=== PATIENT | female | born 1965 | race Caucasian/White ===

== ENCOUNTER 2025-07-13 14:10 | Emergency (ER) | payer OTHER, SELFPAY ==
[2025-07-13] VITALS (16 sets, daily range): BP systolic 122–153; BP diastolic 59–79; PULSE 61–73; RESP 16–24; TEMP 36.6; O2SAT 95–100; BMI 26.6
--- NOTE | 2025-07-13 14:25 | EKG_ITS ---
[place] [id number] [place] [id number] Test Date: 2025-07-13 Pat Name: Sierra Gann Department: [facility] Room: Gender: Female [employer]ash[employer] Designer: NASIR : 1965 Requested By: Order Number: [id number] Reading MD: Arturo Bergman MD Measurements Intervals [place] Rate: 55 P: 40 FL: 138 QRS: 48 QRSD: 94 T: 13 QT: 462 QTc: 441 Interpretive Statements Sinus bradycardia with sinus arrhythmia Electronically Signed On 07-14-2025 8:03:33 PDT by Arturo Bergman MD
--- NOTE | 2025-07-13 14:54 | ED.NEUROSD ---
HPI - Neuro Symptoms/Deficit <Haseeb Ruffin MD - Last Filed: 07/14/25 08:55> General Chief Complaint: Neuro Symptoms/Deficit Stated Complaint: needs MRI, Memory loss this morning Time Seen by Provider: 07/13/25 14:31 Source: patient Mode of arrival: Ambulatory History of Present Illness HPI Narrative: Patient here with . Complains 1 hour of amnesia. Patient was with a friend this morning and they had gone in the [place] exercise. She states and did a fast exam that was negative. Patient was confused about 2 of her dogs and 2 of her friend's dogs that were with them and she did not recognize the dogs. She did not realize where she was or what she was doing. In addition. She does not even remember this confusion or the statements. She does recall towards the end of that 1 hour episode her friend calling another friend [place] advice[place] blood patient denies any history of complex migraine headaches or seizures. Patient does not feel like she was hypoglycemic. There was no known chest pain palpitations diaphoresis. No fall or injury. On Anticoagulants: No Related Data Allergies Allergy/AdvReac Type Severity Reaction Status Date / Time Penicillins Allergy Severe Swelling Verified 07/13/25 14:29 of Lip/Tongue/Throat Review of Systems <Haseeb Ruffin MD - Last Filed: 07/14/25 08:55> Review of Systems Narrative: GENERAL: Negative chills, fatigue, malaise, fever, sweats. HEENT: Negative sinus pain, ear pain, sore throat RESPIRATORY: Negative dyspnea, cough CARDIOVASCULAR: Negative chest pain, palpitations GASTROINTESTINAL: Negative vomiting, nausea, abdominal pain : Negative dysuria, frequency, hematuria MUSCULOSKELETAL: Negative muscle or bony pain SKIN: Negative rash, skin lesions NEUROLOGIC: Negative weakness, numbness, positive amnesia ROS Unobtainable: All systems reviewed & are unremarkable except as noted in HPI and below Hematologic/Lymphatic On Anticoagulants: No Patient History <Haseeb Ruffin MD - Last Filed: 07/14/25 08:55> Social History Smoking Status: Never smoker Smoking Status: Never smoker Exam <Haseeb Ruffin MD - Last Filed: 07/14/25 08:55> Narrative Exam Narrative: GENERAL: in no distress, not toxic not dyspneic HEAD: Normocephalic. EYES: Pupils equal round ENT: Mucous membranes moist. NECK: Trachea midline. CARDIOVASCULAR: Regular rate and rhythm RESPIRATORY: Clear to auscultation. Breath sounds equal bilaterally. No wheezes, rales, or rhonchi. GASTROINTESTINAL: Abdomen soft, non-tender EXTREMITIES: No gross deformities. BACK: No flank tenderness. NEURO: AOx4. Clear speech. No facial droop light touch intact bilateral face hands and legs. 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 Steady bilateral leg LEs without drift. Fast exam is negative SKIN: Warm and dry PSYCH: Not anxious, is cooperative Initial Vital Signs Initial Vital Signs: Vital Signs Pulse Rate 73 07/13/25 14:19 Pulse Oximetry 98 07/13/25 14:19 <Danyelle Camacho DO - Last Filed: 07/14/25 00:33> Initial Vital Signs Initial Vital Signs: Vital Signs Pulse Rate 73 07/13/25 14:19 Pulse Oximetry 98 07/13/25 14:19 Scores <Haseeb Ruffin MD - Last Filed: 07/14/25 08:55> NIH Stroke Scale Level of Conciousness: Alert, keenly responsive Ask month/age: Answers both questions correctly. Open/close eyes, close hand: Performs both tasks correctly Best gaze horizontal: Normal Visual hull: No visual loss Facial palsy: Normal symetrical movement Left arm drift: No drift for full 10 sec Right arm drift: No drift for full 10 sec Left leg drift: No drift for full 5 sec Right leg drift: No drift for full 5 sec Limb ataxia: Absent Sensory on face/arms/legs: Normal, no sensory loss Best language: No aphasia, normal Dysarthria: Normal Extinction or inattention: No abnormality Total NIH Stroke scale score: 0 <Danyelle Camacho DO - Last Filed: 07/14/25 00:33> NIH Stroke Scale Total NIH Stroke scale score: 0 Course <Haseeb Ruffin MD - Last Filed: 07/14/25 08:55> Orders Ordered: Discontinued Medications Sodium Chloride (Normal Saline 0.9%) 500 mls @ 1,000 mls/hr IV BOLUS ONE Stop: 07/13/25 15:25 Last Infusion: 07/13/25 17:48 Dose: Infused Documented By: Admin: 07/13/25 15:30 Dose: 1,000 mls/hr Documented By: TEDDY Vital Signs Vital signs: Vital Signs - 8 hr 07/13/25 16:30 07/13/25 16:30 07/13/25 17:00 Pulse Rate 67 68 Respiratory Rate 24 19 Blood Pressure 125/74 Pulse Oximetry 97 97 Oxygen Delivery Method 07/13/25 17:01 07/13/25 17:01 07/13/25 17:31 Pulse Rate 69 67 Respiratory Rate 23 Blood Pressure 123/59 L Pulse Oximetry 97 100 Oxygen Delivery Method 07/13/25 19:25 07/13/25 19:26 07/13/25 19:26 Pulse Rate 70 63 Respiratory Rate Blood Pressure 136/65 Pulse Oximetry 96 95 Oxygen Delivery Method 07/13/25 19:28 Pulse Rate 62 Respiratory Rate 16 Blood Pressure 136/65 Pulse Oximetry 96 Oxygen Delivery Method Room Air <Danyelle Camacho DO - Last Filed: 07/14/25 00:33> Orders Ordered: Discontinued Medications Sodium Chloride (Normal Saline 0.9%) 500 mls @ 1,000 mls/hr IV BOLUS ONE Stop: 07/13/25 15:25 Last Infusion: 07/13/25 17:48 Dose: Infused Documented By: Admin: 07/13/25 15:30 Dose: 1,000 mls/hr Documented By: TEDDY Vital Signs Vital signs: Vital Signs - 8 hr 07/13/25 16:30 07/13/25 16:30 07/13/25 17:00 Pulse Rate 67 68 Respiratory Rate 24 19 Blood Pressure 125/74 Pulse Oximetry 97 97 Oxygen Delivery Method 07/13/25 17:01 07/13/25 17:01 07/13/25 17:31 Pulse Rate 69 67 Respiratory Rate 23 Blood Pressure 123/59 L Pulse Oximetry 97 100 Oxygen Delivery Method 07/13/25 19:25 07/13/25 19:26 07/13/25 19:26 Pulse Rate 70 63 Respiratory Rate Blood Pressure 136/65 Pulse Oximetry 96 95 Oxygen Delivery Method 07/13/25 19:28 Pulse Rate 62 Respiratory Rate 16 Blood Pressure 136/65 Pulse Oximetry 96 Oxygen Delivery Method Room Air MDM - Neuro Symptoms/Deficit <Haseeb Ruffin MD - Last Filed: 07/14/25 08:55> Lab Data 07/13/25 13:35 07/13/25 13:35 Labs: Lab Results 07/13/25 07/13/25 07/13/25 Range/Units 13:35 15:10 15:10 WBC 9.2 (4.5-11.0) X10^3/uL RBC 4.73 (4.0-5.2) X10^6/uL Hgb 14.7 (12.0-16.0) g/dL Hct 42.6 (36-46) % MCV 90.0 (80-100) fL MCH 31.0 (26-34) PG MCHC 34.5 (30-36) % RDW 12.3 (11.6-14.8) % Plt Count 215 (150-400) X10^3/uL Neut % (Auto) 70.2 (50-75) % Lymph % (Auto) 23.7 L (25-40) % [place] % (Auto) 5.3 (3-14) % Eos % (Auto) 0.4 L (2-4) % Baso % (Auto) 0.4 (0-2) % Neut # (Auto) 6400 (4097-9784) /uL Lymph # (Auto) 2200 (5371-8554) /uL [place] # (Auto) 500 (0-900) /uL Eos # (Auto) 0 (0-450) /uL Baso # (Auto) 0 (0-100) /uL Sodium 135 L (137-145) mmol/L Potassium 4.2 (3.4-5.1) mmol/L Chloride 103 (98-107) mmol/L Carbon Dioxide 23 (22-32) mmol/L BUN 15 (7-17) mg/dL Creatinine 0.76 (0.52-1.04) mg/dL Estimated GFR > 60 (>60) mL/min BUN/Creatinine Ratio 19.7 (6-22) Glucose 85 (70-99) mg/dL Calcium 9.5 (8.4-10.2) mg/dL Total Bilirubin 1.1 (0.2-1.3) mg/dL AST 43 H (14-36) IU/L ALT 26 (<35) IU/L Alkaline Phosphatase 53 (38-126) U/L Total Creatine Kinase 180 H (30-135) U/L Troponin I 0.016 (0.01-0.034) ng/mL Total Protein 7.9 (6.3-8.2) g/dL Albumin 4.8 (3.5-5.0) g/dL Globulin 3.1 (1.7-4.1) g/dL Albumin/Globulin Ratio 1.5 (1.0-2.8) Urine Color Yellow Urine Appearance Clear Urine pH 6.5 Normal (4.5-8.0) Ur Specific [place] <=1.005 (1.000-1.035) Urine Protein Negative (Negative) Urine Glucose (UA) Negative (Negative) g/dL Urine Ketones 1+ H (NEGATIVE) Urine Occult Blood Negative (Negative) Urine Nitrate Negative (Negative) Urine Bilirubin Negative (NEGATIVE) Urine Urobilinogen 0.2 (0.2) E.U./dL Ur Leukocyte Esterase Negative (NEGATIVE) Urine RBC None seen (0-5/HPF) Urine WBC None seen (0-5/HPF) Ur Squamous Epith Cells 0-1 /hpf (0-5/HPF) Urine Bacteria None seen (None) Vol Urine Centrifuged 10ml (spun) U Opiates 300ng/mL cut Negative (Negative) Ur Oxycodone Screen Negative (Negative) Urine Methadone Screen Negative (Negative) Ur Barbiturates Screen Negative (Negative) U Tricyclic Antidepress Negative (Negative) Ur Phencyclidine Scrn Negative (Negative) Ur Amphetamines Screen Negative (Negative) U Methamphetamines Scrn Negative (Negative) Ur MDMA Scrn (Ecstasy) Negative (Negative) U Benzodiazepines Scrn Negative (Negative) Urine Cocaine Screen Negative (Negative) U Marijuana (THC) Screen Negative (Negative) Urine Specific [place] Normal (Normal) Ethyl Alcohol < 10 (<10) mg/dL Ur Creatinine Normal (Normal) Imaging Data CT scan - head: Radiologist's Impression: [place] [address] CT Scan Report Signed Patient: Sierra Gann MR#: [id number] : 1965 Acct:[id number] Age/Sex: 60 / F Date of Service: 07/13/25 Loc: ED Accession Number: [id number] Procedure: CT head/brain wo con Ordering Provider: Haseeb Ruffin MD PROCEDURE: CT HEAD/BRAIN WO CON INDICATIONS: Altered mental status TECHNIQUE: Noncontrast 4.5 mm thick angled axial sections acquired from the foramen magnum to the vertex, with coronal and sagittal reformats. For radiation dose reduction, the following was used: automated exposure control, adjustment of mA and/or kV according to patient size. COMPARISON: None. FINDINGS: Image quality: Diagnostic. CSF spaces: Basal cisterns are patent. No extra-axial fluid collections. Ventricles are normal in size and shape. Brain: No midline shift. No intracranial mass effect or hemorrhage. [place]-white matter interface is normal. Skull and face: Calvarium and visualized facial bones are intact, without suspicious lesions. Sinuses: Visualized sinuses and mastoids are clear. IMPRESSION: No acute intracranial pathology. Dictated by: Joe Clark M.D. on 07/13/2025 at 14:23 Approved by: Joe Clark M.D. on 07/13/2025 at 14:24 CTA - brain/neck: Radiologist's Impression: [place] [address] CT Scan Report Signed Patient: Sierra Gann MR#: [id number] : 1965 Acct:[id number] Age/Sex: 60 / F Date of Service: 07/13/25 Loc: ED Accession Number: [id number] Procedure: CT angio head and neck Ordering Provider: Haseeb Ruffin MD PROCEDURE: CT ANGIO HEAD AND NECK INDICATIONS: Altered mental status TECHNIQUE: After the administration of intravenous contrast, 1 mm thick sections acquired from the aortic arch through the [place] of [place]. 3-dimensional hotoktk-budrfwuum-hzqpbtshrt (MIP) and/or volume rendering reformats were acquired of the central intracranial vasculature and neck separately. For radiation dose reduction, the following was used: automated exposure control, adjustment of mA and/or kV according to patient size. COMPARISON: [facility], CT, CT HEAD/BRAIN WO CON, 07/13/2025, 15:07. FINDINGS: Image quality: Limited by bolus timing, with venous contamination. Cerebral CT Angiogram: Internal carotid arteries: No acute findings. Intracranial ICA are patent with no significant stenosis. No occlusion. No aneurysm. Anterior cerebral arteries: Unremarkable. No significant stenosis. No occlusion. No aneurysm. Middle cerebral arteries: Unremarkable. No significant stenosis. No occlusion. No aneurysm. Posterior cerebral arteries: Unremarkable. No significant stenosis. No occlusion. No aneurysm. Basilar artery: Unremarkable. No significant stenosis. No occlusion. No aneurysm. Vertebral arteries: Unremarkable as visualized. Dural venous sinuses: Unremarkable given phase of enhancement. Other: Arterial phase appearance of the brain parenchyma is unremarkable. Neck CT Angiogram: Internal carotid arteries: Unremarkable. No significant stenosis. No dissection or occlusion. Common carotid arteries: Unremarkable. No significant stenosis. No dissection or occlusion. External carotid arteries: Unremarkable. No occlusion. Vertebral arteries: The origins of the vertebral arteries both appear widely patent. The more superior extracranial portions of both vertebral arteries also demonstrate normal courses and calibers. The left vertebral artery is dominant to the right. Aortic Arch and Mediastinum: Partially visualized aortic arch unremarkable without evidence of aneurysm. Origins of the great vessels unremarkable. Other: Arterial phase soft tissues of the neck and chest are unremarkable. Moderate cervical spine degenerative changes can be seen. Reversal of the normal cervical lordosis is seen, with the apex at the C4 level. There is minimal anterolisthesis seen at the C3-C4 level. IMPRESSION: No imaging explanation is found for this patient's presenting symptoms. No significant intracranial arterial abnormality is seen. No significant abnormality is seen within the arteries of the neck. No findings of dissection are seen. Additional findings: Moderate cervical spine degenerative change Any quantitative measurements of stenosis were performed using NASCET criteria. Dictated by: Joe Clark M.D. on 07/13/2025 at 14:28 Approved by: Joe Clark M.D. on 07/13/2025 at 14:30 [facility] Narrative Medical decision making narrative: Patient here with . Complains 1 hour of amnesia. Patient was with a friend this morning and they had gone in the [place] exercise. She states and did a fast exam that was negative. Patient was confused about 2 of her dogs and 2 of her friend's dogs that were with them and she did not recognize the dogs. She did not realize where she was or what she was doing. In addition. She does not even remember this confusion or the statements. She does recall towards the end of that 1 hour episode her friend calling another friend for advice[place] patient denies any history of complex migraine headaches or seizures. Patient does not feel like she was hypoglycemic. There was no known chest pain palpitations diaphoresis. No fall or injury. MDM After history and exam, CT head CT angio head and neck, possible MRI brain, Neurology consult. CBC CMP EKG Differential considered: Includes but not limited to TIA stroke complex migraine headache complex seizure Medical records reviewed: No recent visit for this complaint Lab Test results independently reviewed as above. Pertinent findings: WBC 9.2 hemoglobin 14.7 sodium 135 potassium 4.2 glucose 85 AST 43 ALT 26 troponin 0.016 urinalysis negative nitrate negative leukocyte esterase Independently reviewed EKG sinus bradycardia rate 55 otherwise normal EKG Imaging studies independently reviewed: Consultations: 4:[address] March, neurology, tele stroke with [facility]. Patient she get MRI with and without contrast of the brain. If unremarkable can be discharged home with close follow up with primary care. Does not appear to be TIA or complex migraine headache or seizure. Likely transient global amnesia. Re-evaluations: Discussion: 6:[address] Ruffin: Sinus with Dr. Ryan. MRI brain pending as recommended by neurology. Likely transient global amnesia. Diagnosis: <Danyelle Camacho, - Last Filed: 07/14/25 00:33> Lab Data Labs: Lab Results 07/13/25 07/13/25 07/13/25 Range/Units 13:35 15:10 15:10 WBC 9.2 (4.5-11.0) X10^3/uL RBC 4.73 (4.0-5.2) X10^6/uL Hgb 14.7 (12.0-16.0) g/dL Hct 42.6 (36-46) % MCV 90.0 (80-100) fL MCH 31.0 (26-34) PG MCHC 34.5 (30-36) % RDW 12.3 (11.6-14.8) % Plt Count 215 (150-400) X10^3/uL Neut % (Auto) 70.2 (50-75) % Lymph % (Auto) 23.7 L (25-40) % [place] % (Auto) 5.3 (3-14) % Eos % (Auto) 0.4 L (2-4) % Baso % (Auto) 0.4 (0-2) % Neut # (Auto) 6400 (8488-9747) /uL Lymph # (Auto) 2200 (5887-3114) /uL [place] # (Auto) 500 (0-900) /uL Eos # (Auto) 0 (0-450) /uL Baso # (Auto) 0 (0-100) /uL Sodium 135 L (137-145) mmol/L Potassium 4.2 (3.4-5.1) mmol/L Chloride 103 (98-107) mmol/L Carbon Dioxide 23 (22-32) mmol/L BUN 15 (7-17) mg/dL Creatinine 0.76 (0.52-1.04) mg/dL Estimated GFR > 60 (>60) mL/min BUN/Creatinine Ratio 19.7 (6-22) Glucose 85 (70-99) mg/dL Calcium 9.5 (8.4-10.2) mg/dL Total Bilirubin 1.1 (0.2-1.3) mg/dL AST 43 H (14-36) IU/L ALT 26 (<35) IU/L Alkaline Phosphatase 53 (38-126) U/L Total Creatine Kinase 180 H (30-135) U/L Troponin I 0.016 (0.01-0.034) ng/mL Total Protein 7.9 (6.3-8.2) g/dL Albumin 4.8 (3.5-5.0) g/dL Globulin 3.1 (1.7-4.1) g/dL Albumin/Globulin Ratio 1.5 (1.0-2.8) Urine Color Yellow Urine Appearance Clear Urine pH 6.5 Normal (4.5-8.0) Ur Specific [place] <=1.005 (1.000-1.035) Urine Protein Negative (Negative) Urine Glucose (UA) Negative (Negative) g/dL Urine Ketones 1+ H (NEGATIVE) Urine Occult Blood Negative (Negative) Urine Nitrate Negative (Negative) Urine Bilirubin Negative (NEGATIVE) Urine Urobilinogen 0.2 (0.2) E.U./dL Ur Leukocyte Esterase Negative (NEGATIVE) Urine RBC None seen (0-5/HPF) Urine WBC None seen (0-5/HPF) Ur Squamous Epith Cells 0-1 /hpf (0-5/HPF) Urine Bacteria None seen (None) Vol Urine Centrifuged 10ml (spun) U Opiates 300ng/mL cut Negative (Negative) Ur Oxycodone Screen Negative (Negative) Urine Methadone Screen Negative (Negative) Ur Barbiturates Screen Negative (Negative) U Tricyclic Antidepress Negative (Negative) Ur Phencyclidine Scrn Negative (Negative) Ur Amphetamines Screen Negative (Negative) U Methamphetamines Scrn Negative (Negative) Ur MDMA Scrn (Ecstasy) Negative (Negative) U Benzodiazepines Scrn Negative (Negative) Urine Cocaine Screen Negative (Negative) U Marijuana (THC) Screen Negative (Negative) Urine Specific [place] Normal (Normal) Ethyl Alcohol < 10 (<10) mg/dL Ur Creatinine Normal (Normal) Imaging Data MR brain: Radiologist's Impression: PROCEDURE: MR HEAD/BRAIN WO/W CON INDICATIONS: Altered mental status TECHNIQUE: Noncontrast axial T1 spin echo, axial T2 fast spin echo, sagittal and axial FLAIR, coronal T2 fast spin echo, axial gradient echo, axial diffusion and ADC through the brain. After the administration of contrast, axial and coronal and sagittal 3D VIBE or T1 spin echo with fat saturation through the brain. COMPARISON: [facility], CT, CT HEAD/BRAIN WO CON, 07/13/2025, 15:07. FINDINGS: Image quality: Excellent. CSF Spaces: Basal cisterns are patent. No extra-axial fluid collections. Ventricles are normal in size and shape. Brain: No midline shift. No intracranial bleeds or masses. No abnormal intracranial enhancement. The brainstem appears normal. Diffusion-weighted images demonstrate no acute infarct. No chronic ischemic insults. Normal intravascular flow voids are present. Skull and face: Calvarial marrow is normal in signal. Orbits appear normal. Sinuses: Sinuses and mastoids appear clear. IMPRESSION: Negative study. No acute intracranial process. Dictated by: Matias Panda M.D. on 07/13/2025 at 18:37 MDM Narrative Medical decision making narrative: Patient here with . Complains 1 hour of amnesia. Patient was with a friend this morning and they had gone in the [employer] exercise. She states and did a fast exam that was negative. Patient was confused about 2 of her dogs and 2 of her friend's dogs that were with them and she did not recognize the dogs. She did not realize where she was or what she was doing. In addition. She does not even remember this confusion or the statements. She does recall towards the end of that 1 hour episode her friend calling another friend for advice. [place] does have history of high blood patient denies any history of complex migraine headaches or seizures. Patient does not feel like she was hypoglycemic. There was no known chest pain palpitations diaphoresis. No fall or injury. MDM After history and exam, CT head CT angio head and neck, possible MRI brain, Neurology consult. CBC CMP EKG Differential considered: Includes but not limited to TIA stroke complex migraine headache complex seizure Medical records reviewed: No recent visit for this complaint Lab Test results independently reviewed as above. Pertinent findings: WBC 9.2 hemoglobin 14.7 sodium 135 potassium 4.2 glucose 85 AST 43 ALT 26 troponin 0.016 urinalysis negative nitrate negative leukocyte esterase Independently reviewed EKG sinus bradycardia rate 55 otherwise normal EKG Imaging studies independently reviewed: Consultations: 4:[address] March, neurology, tele stroke with [facility]. Patient she get MRI with and without contrast of the brain. If unremarkable can be discharged home with close follow up with primary care. Does not appear to be TIA or complex migraine headache or seizure. Likely transient global amnesia. Re-evaluations: Discussion: 6:[address] Ruffin: Sinus with Dr. Ryan. MRI brain pending as recommended by neurology. Likely transient global amnesia. Diagnosis: 1700 Dr. Camacho-patient is signed out to me by Dr. Ruffin. Patient presents today with amnesia. Neurology was consulted sounds likely transient global amnesia MRI of brain was negative all other imaging was negative. Blood work reviewed overall reassuring, urinalysis negative for UTI, toxicology screen was also negative Family at bedside report that she is doing well no repetitive questioning they seem like she is back to her normal self. She still does not remember the events. Feels comfortable going home Discharge Plan Departure Patient Disposition: Home Clinical Impression: Transient global amnesia Instructions: DI for Transient Global Amnesia Activity Restrictions/Additional Instructions: *You have been diagnosed with transient global amnesia *What to do: At this time your workup is negative. I am glad to see that you are doing better. Eat drink and sleep as noted *Continue to take medications as directed *Follow up with your primary care provider in 2-3 days or call [phone] *Return to ER if you should have increasing confusion weakness facial droop slurring of speech or any new, worsening or concerning symptoms Stand Alone Forms: Patient Portal/API
[2025-07-13 15:05] LABS: Add Manual Diff / Slide Review NO; Hematocrit 42.6 % (36-46); Hemoglobin 14.7 g/dL (12.0-16.0); Lymphocytes Absolute Auto 2200 /uL (1100-4500); Mean Corpuscular HGB Conc 34.5 % (30-36); Mean Corpuscular Hemoglobin 31.0 PG (26-34); Mean Corpuscular Volume 90.0 fL (80-100); Platelet Count 215 X10^3/uL (150-400)
[2025-07-13 15:14] LABS: Alanine Aminotransferase 26 IU/L (<35); Albumin 4.8 g/dL (3.5-5.0); Albumin Globulin Ratio 1.5 (1.0-2.8); Alkaline Phosphatase 53 U/L (38-126); Blood Urea Nitrogen 15 mg/dL (7-17); Calcium 9.5 mg/dL (8.4-10.2); Carbon Dioxide 23 mmol/L (22-32); Chloride 103 mmol/L (98-107); Creatine Kinase 180 U/L (30-135); Estimated Glomerular Filt Rate > 60 mL/min (>60); Ethanol (ETOH) < 10 mg/dL (<10); Globulin 3.1 g/dL (1.7-4.1); Glucose 85 mg/dL (70-99); HEMOLYSIS 32 (0-50); Potassium 4.2 mmol/L (3.4-5.1); Sodium 135 mmol/L (137-145); Total Protein 7.9 g/dL (6.3-8.2)
[2025-07-13 15:26] LABS: Troponin I 0.016 ng/mL (0.01-0.034)
[2025-07-13] MEDS: SODIUM CHLORIDE 0.9% 500 ML 1000 ML IV (15:30)
[2025-07-13 15:34] LABS: Appearance Urine UA CLEAR; Bilirubin Urine UA NEGATIVE (NEGATIVE); Color Urine UA YELLOW; Glucose Urine UA NEGATIVE (Negative); Ketones Urine UA 1+ (NEGATIVE); Leukocyte Esterase Urine UA NEGATIVE (NEGATIVE); Nitrite Urine UA NEGATIVE (Negative); Occult Blood Urine UA NEGATIVE (Negative); Protein Urine UA NEGATIVE (Negative); Specific Gravity Urine UA <=1.005 (1.000-1.035); Urobilinogen Urine UA 0.2 E.U./dL (0.2)
[2025-07-13 15:38] LABS: pH Urine UA 6.5 (4.5-8.0)
--- NOTE | 2025-07-13 16:04 | DI.MRI.S_ITS ---
PROCEDURE: MR HEAD/BRAIN WO/W CON INDICATIONS: Altered mental status TECHNIQUE: Noncontrast axial T1 spin echo, axial T2 fast spin echo, sagittal and axial FLAIR, coronal T2 fast spin echo, axial gradient echo, axial diffusion and ADC through the brain. After the administration of contrast, axial and coronal and sagittal 3D VIBE or T1 spin echo with fat saturation through the brain. COMPARISON: [facility], CT, CT HEAD/BRAIN WO CON, 07/13/2025, 15:07. FINDINGS: Image quality: Excellent. CSF Spaces: Basal cisterns are patent. No extra-axial fluid collections. Ventricles are normal in size and shape. Brain: No midline shift. No intracranial bleeds or masses. No abnormal intracranial enhancement. The brainstem appears normal. Diffusion-weighted images demonstrate no acute infarct. No chronic ischemic insults. Normal intravascular flow voids are present. Skull and face: Calvarial marrow is normal in signal. Orbits appear normal. Sinuses: Sinuses and mastoids appear clear. IMPRESSION: Negative study. No acute intracranial process. Dictated by: Matias Panda M.D. on 07/13/2025 at 18:37 Approved by: Matias Panda M.D. on 07/13/2025 at 18:39
[2025-07-13 16:25] LABS: Ur Specific Gravity Normal (Normal)
[2025-07-13 16:26] LABS: UR Morphine/Opiate cutoff 300 Negative (Negative); Urine MDMA Negative (Negative); Urine Methamphetamines Negative (Negative); Urine Tetrahydrocannabinol Negative (Negative); Urine Tricyclic Antidepressant Negative (Negative)
== END 2025-07-13 19:29 | disposition home or self-care (01) ==
PROVIDERS: Emergency Medicine; Emergency Provider Emergency Medicine
DX: G45.4 Transient global amnesia (principal); R00.1 Bradycardia, unspecified
CPT/HCPCS: 36415; 70450; 70496; 70498; 70553; 80053; 80305; 80320; 81001; 82550; 84484; 85025; 93005; 96360; 96361; 99284; A9579; Q9967